=== PATIENT | male | born 1960 | race African-American/Black ===

== ENCOUNTER 2019-08-30 13:29 | Emergency (ER) | payer BC, OTHER ==
[2019-08-30 13:40] VITALS: BP 130/90; PULSE 64; TEMP 98; BMI 29.7
[2019-08-30] MEDS ORDERED: IBUPROFEN 600 MG TABLET (FP) PO ONE (13:47)
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
== END 2019-08-30 14:50 | disposition home or self-care (01) ==
LOC: JERFT 13:29
DX: M25.512 Pain in left shoulder (principal); W01.0XXA Fall on same level from slipping, tripping and stumbling without subsequent striking against object, initial encounter
CPT/HCPCS: 73000-TC-LT-FY; 73030-TC-LT-FY; 99283-25